=== PATIENT | male | born 1955 | race Caucasian/White ===

== ENCOUNTER 2021-02-18 07:01 | Day surgery (SDC) | payer BC ==
[2021-02-13 09:32] VITALS: BMI 35.9
[2021-02-18] MEDS ORDERED: MIDAZOLAM HCL 2 MG/2 ML SINGLE DOSE VIAL ONE (08:46)
[2021-02-18] MEDS ORDERED: LIDOCAINE HCL 2% (50ML VIAL) SQ ONE (09:13)
[2021-02-18 09:38] VITALS: TEMP 98
[2021-02-18 10:19] VITALS: BP 130/76; PULSE 74
== END 2021-02-18 10:19 | disposition home or self-care (01) ==
LOC: FASU 07:01
PROVIDERS: ATTEND Orthopaedic Surgery Hand Surgery
PROC: 0LN70ZZ Release Right Hand Tendon, Open Approach (ICD-10-PCS; principal; 2021-02-18 09:12)
DX: M65.341 Trigger finger, right ring finger (principal)
CPT/HCPCS: 82962